=== PATIENT | female | born 1985 | race Caucasian/White ===

== ENCOUNTER 2020-04-15 13:56 | Emergency (ER) | payer SELFPAY ==
[2020-04-15 15:10] LABS: Urine Blood NEGATIVE (NEG); Urine Glucose NEGATIVE (NEG); Urine Protein NEGATIVE (NEG); Urine Specific Gravity 1.015 (1.005-1.030)
[2020-04-15 16:42] LABS: Absolute Lymphocytes (CBC) 2.4 K/uL (0.7-4.9); Hematocrit 34.8 % (36.0-45.0); Lymphocytes % 31.1 % (15.3-44.8); MPV 8.5 fL (7.6-11.3); RBC Red Blood Cell Count 3.83 M/uL (3.86-4.86)
[2020-04-15] MEDS ORDERED: MORPHINE 4 MG/ML SYR ONE (16:43)
[2020-04-15] MEDS ORDERED: ONDANSETRON 4 MG/2 ML VIAL ONE (16:43)
[2020-04-15 16:50] LABS: BUN Blood Urea Nitrogen 11 mg/dL (7-18); Bicarbonate 27 mmol/L (21-32); Glucose Level 85 mg/dL (74-106); Potassium 3.8 mmol/L (3.5-5.1); Sodium Level 138 mmol/L (136-145)
--- NOTE | 2020-04-15 18:13 | RAD REPORT ---
EXAM DESCRIPTION: CT - Abdomen Pelvis W Contrast - 04/15/2020 5:30 pm CLINICAL HISTORY: ABD PAIN COMPARISON: Transvaginal Study Probe dated 04/15/2020 TECHNIQUE: Biphasic, helical CT imaging of the abdomen and pelvis was performed following 100 ml non -ionic IV contrast. No oral contrast administered. All CT scans are performed using dose optimization technique as appropriate and may include automated exposure control or mA/KV adjustment according to patient size. FINDINGS: No suspicious findings in the lung bases. The liver, spleen, and pancreas show no suspicious findings. Gallbladder and biliary tree are also wi thout suspicious finding. Symmetric renal function is seen with no hydronephrosis or suspicious renal mass. No pyelonephritis o r acute parenchymal process. No bladder abnormalities. No adrenal abnormalities. Uterus is not identified and absent by history. Right ovary is not identified also reported to be trisha gically absent. In the left adnexum there are 2 adjacent cystic masses approximately 2.7 and 3.7 cm i n maximum dimension. These have a very similar appearance to the on opacified fluid-filled small michael l. These of the correlate to the earlier ultrasound finding. No gastric dilatation or wall thickening. Multiple fluid-filled nondilated distal small bowel loops a re present. No appendicitis findings. There is a large stool volume present filling and distending th e right-side of the colon and filling the left side of the colon. No colon wall thickening or mass. No free air or pneumatosis. There is no free fluid associated with the left adnexal cyst nor elsewhe re in the peritoneal or retroperitoneal spaces. No hernia, mass or bulky lymphadenopathy. No acute bone findings. Patient has L5 pars interarticularis defects with a minimal degree of anterio r subluxation. IMPRESSION: Contrast enhanced CT abdomen and pelvis showing no free air or other surgically emergent finding. Two cystic masses in the left adnexa are very similar in appearance to the isodense fluid-filled smal l bowel loops. These are believed to be ovarian or paraovarian cysts and correlates to the ultrasound finding. No gross evidence for cyst rupture. These could be a source for left adnexal pain. Patient has a constipation pattern with a large amount of stool filling and/or distending the colon. Distal fluid-filled small bowel loops could indicate associated enteritis.
--- NOTE | 2020-04-15 18:15 | RAD REPORT ---
EXAM DESCRIPTION: US - Transvaginal Study Probe - 04/15/2020 4:59 pm CLINICAL HISTORY: r/o left torsion, left-sided pelvic pain COMPARISON: No comparisons TECHNIQUE: Endovaginal sonography was performed. FINDINGS: Uterus is absent. Right ovary was not identifiable, probably obscured by bowel. No right a dnexal mass identifiable. Left ovary is identifiable. Normal blood flow seen in the ovarian stroma. Patient has 2 complex cysts of the left ovary at least 3.1 and 2.5 cm in maximum dimension. These are both most likely hemorrhag ic cysts. No solid mass component or thickened septation. In the adjacent soft tissues no suspicious mass. IMPRESSION: Two hemorrhagic cysts of the left ovary 3.1 cm and 2.5 cm in size. No suspicion for ovarian torsion. Blood flow is demonstrated in the left ovarian stroma.
--- NOTE | 2020-04-15 18:20 | ER ---
Nurse's Notes [facility] Name: Sania Velarde Age: 34 yrs Sex: Female : 1985 Arrival Date: 04/15/2020 Time: 13:59 Bed 18 Private MD: Diagnosis: Other ovarian cysts;Constipation Presentation: 04/15 14:02 Chief complaint: Patient states: my lower LEFT side it has been hurting for 2 days tw2 getting worse, i had a partial hysterectomy in 2004, 2008 my right ovary removed due torsion. Coronavirus screen: At this time, the client does not indicate any symptoms associated with coronavirus-19. The client reports previous COVID testing was negative. Date of collection: April 11, 2020. Ebola Screen: Patient denies travel to an Ebola-affected area in the 21 days before illness onset. Initial Sepsis Screen: Does the patient meet any 2 criteria? No. Patient's initial sepsis screen is negative. Does the patient have a suspected source of infection? No. Patient's initial sepsis screen is negative. Risk Assessment: Do you want to hurt yourself or someone else? Patient reports no desire to harm self or others. Onset of symptoms was April 15, 2020. 14:02 Method Of Arrival: Ambulatory tw2 14:02 Acuity: GIRISH 3 tw2 Triage Assessment: 14:05 General: Appears in no apparent distress. uncomfortable, Behavior is calm, cooperative, tw2 appropriate for age. Pain: Complains of pain in left lower quadrant. 14:06 : Reports vaginal discharge that is yellow, no odor. 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 - Social history:: Smoking status: Patient reports the use of cigarette tobacco products, smokes one-half pack cigarettes per day. Screenin:53 Abuse screen: Denies threats or abuse. Nutritional screening: No deficits noted. vg1 Tuberculosis screening: No symptoms or risk factors identified. Fall Risk No fall in past 12 months (0 pts). No secondary diagnosis (0 pts). Ambulatory Aid- None/Bed Rest/Nurse Assist (0 pts). Gait- Normal/Bed Rest/Wheelchair (0 pts) Mental Status- Oriented to own ability (0 pts). Total Bailey Fall Scale indicates No Risk (0-24 pts). Assessment: 15:45 General: Appears in no apparent distress. uncomfortable, Behavior is cooperative, vg1 crying. Pain: Complains of pain in left lower quadrant Pain currently is 8 out of 10 on a pain scale. Pain began yesterday. Neuro: Level of Consciousness is awake, alert, obeys commands, Oriented to person, place, time, situation. Cardiovascular: Patient's skin is warm and dry. Respiratory: Airway is patent Respiratory effort is even, unlabored, Respiratory pattern is regular, symmetrical. GI: Patient currently denies diarrhea, nausea, vomiting. GI: Abd is soft X 4 quads Abdomen is tender to palpation in left lower quadrant Guarding noted. : No signs and/or symptoms were reported regarding the genitourinary system. EENT: No signs and/or symptoms were reported regarding the EENT system. Derm: Skin is intact, is healthy with good turgor. Musculoskeletal: Circulation, motion, and sensation intact. 15:45 GI: Reports normal bowel habits. vg1 17:19 Reassessment: Patient appears in no apparent distress at this time. Patient and/or vg1 family updated on plan of care and expected duration. Pain level reassessed. Patient is alert, oriented x 3, equal unlabored respirations, skin warm/dry/pink. Rated pain 5/10. Patient states feeling better. 18:13 Reassessment: Patient stated that the pain is coming back. Rated pain as 7/10. Notified vg1 provider. Vital Signs: 14:02 BP 135 / 78; Pulse 82; Resp 17; Temp 98.5(TE); Pulse Ox 100% on R/A; Weight 77.11 kg tw2 (R); Height 5 ft. 4 in. (162.56 cm); Pain 7/10; 15:45 BP 109 / 65; Pulse 88; Resp 20; Pulse Ox 98% on R/A; vg1 16:30 BP 116 / 60; Pulse 66; Resp 16; Pulse Ox 98% on R/A; vg1 17:00 BP 107 / 61; Pulse 60; Resp 14; Pulse Ox 98% on R/A; vg1 18:00 BP 116 / 59; Pulse 70; Resp 16; Pulse Ox 99% on R/A; vg1 14:02 Body Mass Index 29.18 (77.11 kg, 162.56 cm) tw2 ED Course: 13:59 Patient arrived in ED. ds1 14:04 Triage completed. tw2 14:06 Arm band placed on. tw2 15:38 Hortencia Hoang FNP-C is PHCP. kb 15:38 Jean Loza MD is Attending Physician. kb 15:46 Aledya Samayoa, RN is Primary Nurse. vg1 15:53 Patient has correct armband on for positive identification. Bed in low position. Call vg1 light in reach. 16:10 Missed attempt(s): 20 gauge in right forearm. Bleeding controlled, band aid applied, jp3 catheter tip intact. 16:15 Initial lab(s) drawn, by me, sent to lab. Inserted saline lock: 20 gauge in left jp3 antecubital area, using aseptic technique. Blood collected. 16:15 Patient maintains SpO2 saturation greater than 95% on room air. jp3 16:38 US at bedside. vg1 17:00 US Transvaginal Study (Probe) In Process Unspecified. EDMS 17:30 CT Abd/Pelvis - IV Contrast Only In Process Unspecified. EDMS 18:36 No provider procedures requiring assistance completed. IV discontinued, intact, vg1 bleeding controlled, No redness/swelling at site. Pressure dressing applied. Administered Medications: 16:37 Drug: morphine 4 mg {Note: rass0.} Route: IVP; Site: left antecubital; vg1 17:30 Follow up: Response: No adverse reaction; Pain is decreased vg1 16:37 Drug: Zofran (Ondansetron) 4 mg Route: IVP; Site: left antecubital; vg1 17:30 Follow up: Response: Nausea is decreased vg1 18:35 Drug: TORadol 30 mg Route: IVP; Site: left antecubital; vg1 18:35 Follow up: Response: Medication administered at discharge. vg1 Outcome: 18:19 Discharge ordered by . kb 18:36 Discharged to home ambulatory. vg1 18:36 Condition: stable 18:36 Discharge instructions given to patient, Instructed on discharge instructions, follow up and referral plans. Demonstrated understanding of instructions, follow-up care. 18:36 Patient left the ED. vg1 Signatures: Dispatcher [employer] EDHortencia Gonzales, MANAGER WINTER-C MANAGER WINTER-Soraya Ellison ds1 Laury Byers RN RN tw2 Fabio Boudreaux jp3 Aleyda Samayoa, RN RN vg1
--- NOTE | 2020-04-15 18:20 | EDPHYS ---
Physician Documentation [facility] Name: Sania Velarde Age: 34 yrs Sex: Female : 1985 Arrival Date: 04/15/2020 Time: 13:59 Bed 18 Private MD: ED Physician Jean Loza HPI: 04/15 19:22 This 34 yrs old Female presents to ER via Ambulatory with complaints of L kb Side Pelvic Pain. 19:24 The patient presents with abdominal pain in the left lower quadrant. The patient has kb not experienced similar symptoms in the past. The patient has not recently seen a physician. 19:24 Onset: The symptoms/episode began/occurred 2 day(s) ago. The symptoms do not radiate. kb Associated signs and symptoms: none. The symptoms are described as constant. Modifying factors: The symptoms are alleviated by nothing, the symptoms are aggravated by pressure. Severity of pain: At its worst the pain was moderate in the emergency department the pain is unchanged. 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 - Social history:: Smoking status: Patient reports the use of cigarette tobacco products, smokes one-half pack cigarettes per day. ROS: 19:21 Constitutional: Negative for fever, chills, and weight loss, Cardiovascular: Negative kb for chest pain, palpitations, and edema, Respiratory: Negative for shortness of breath, cough, wheezing, and pleuritic chest pain, Back: Negative for injury and pain, MS/Extremity: Negative for injury and deformity, Skin: Negative for injury, rash, and discoloration, Neuro: Negative for headache, weakness, numbness, tingling, and seizure. 19:21 Abdomen/GI: Positive for abdominal pain, Negative for nausea, vomiting, and diarrhea, constipation, abdominal cramps, abdominal distension, anorexia. Exam: 19:21 Constitutional: This is a well developed, well nourished patient who is awake, alert, kb and in no acute distress. Head/Face: Normocephalic, atraumatic. Chest/axilla: Normal chest wall appearance and motion. Nontender with no deformity. No lesions are appreciated. Cardiovascular: Regular rate and rhythm with a normal S1 and S2. No gallops, murmurs, or rubs. Normal PMI, no JVD. No pulse deficits. Respiratory: Lungs have equal breath sounds bilaterally, clear to auscultation and percussion. No rales, rhonchi or wheezes noted. No increased work of breathing, no retractions or nasal flaring. Back: No spinal tenderness. No costovertebral tenderness. Full range of motion. Skin: Warm, dry with normal turgor. Normal color with no rashes, no lesions, and no evidence of cellulitis. MS/ Extremity: Pulses equal, no cyanosis. Neurovascular intact. Full, normal range of motion. Neuro: Awake and alert, GCS 15, oriented to person, place, time, and situation. Cranial nerves II-XII grossly intact. Motor strength 5/5 in all extremities. Sensory grossly intact. Cerebellar exam normal. Normal gait. 19:21 Abdomen/GI: Inspection: abdomen appears normal, Bowel sounds: normal, in all quadrants, Palpation: soft, in all quadrants, moderate abdominal tenderness, in the left lower quadrant. Vital Signs: 14:02 BP 135 / 78; Pulse 82; Resp 17; Temp 98.5(TE); Pulse Ox 100% on R/A; Weight 77.11 kg tw2 (R); Height 5 ft. 4 in. (162.56 cm); Pain 7/10; 15:45 BP 109 / 65; Pulse 88; Resp 20; Pulse Ox 98% on R/A; vg1 16:30 BP 116 / 60; Pulse 66; Resp 16; Pulse Ox 98% on R/A; vg1 17:00 BP 107 / 61; Pulse 60; Resp 14; Pulse Ox 98% on R/A; vg1 18:00 BP 116 / 59; Pulse 70; Resp 16; Pulse Ox 99% on R/A; vg1 14:02 Body Mass Index 29.18 (77.11 kg, 162.56 cm) tw2 MDM: 15:38 Patient medically screened. kb 19:20 Data reviewed: vital signs, nurses notes. Data interpreted: Pulse oximetry: on room air kb is 99 %. Interpretation: normal. Counseling: I had a detailed discussion with the patient and/or guardian regarding: the historical points, exam findings, and any diagnostic results supporting the discharge/admit diagnosis, lab results, radiology results, the need for outpatient follow up, a family practitioner, to return to the emergency department if symptoms worsen or persist or if there are any questions or concerns that arise at home. 04/15 14:31 Order name: Urine Dipstick--Ancillary (enter results); Complete Time: 15:38 bd 04/15 14:31 Order name: Urine --Ancillary (enter results); Complete Time: 15:38 bd 04/15 16:00 Order name: Basic Metabolic Panel kb 04/15 16:00 Order name: CBC with Diff kb 04/15 16:01 Order name: Basic Metabolic Panel; Complete Time: 16:50 EDMS 04/15 16:01 Order name: CBC with Automated Diff; Complete Time: 17:10 EDMS 04/15 16:00 Order name: IV Saline Lock; Complete Time: 16:25 kb 04/15 16:00 Order name: Labs collected and sent; Complete Time: 16:38 kb 04/15 16:00 Order name: US Transvaginal Study (Probe); Complete Time: 18:17 kb 04/15 16:00 Order name: CT Abd/Pelvis - IV Contrast Only; Complete Time: 18:16 kb 04/15 16:01 Order name: IV Start; Complete Time: 16:23 kb Administered Medications: 16:37 Drug: morphine 4 mg {Note: rass0.} Route: IVP; Site: left antecubital; vg1 17:30 Follow up: Response: No adverse reaction; Pain is decreased vg1 16:37 Drug: Zofran (Ondansetron) 4 mg Route: IVP; Site: left antecubital; vg1 17:30 Follow up: Response: Nausea is decreased vg1 18:35 Drug: TORadol 30 mg Route: IVP; Site: left antecubital; vg1 18:35 Follow up: Response: Medication administered at discharge. vg1 Disposition: 04/15/20 18:19 Discharged to Home. Impression: Other ovarian cysts, Constipation. - Condition is Stable. - Discharge Instructions: Constipation, Adult, [id number], Ovarian Cyst, [id number]. - Medication Reconciliation Form, Thank You Letter, Antibiotic Education, Prescription Opioid Use form. - Follow up: Emergency Department; When: As needed; Reason: Worsening of condition. Follow up: Private Physician; When: 2 - 3 days; Reason: Recheck today's complaints, Continuance of care, Re-evaluation by your physician. Addendum: 04/17/2020 19:09 Co-signature as Attending Physician, Jean Loza MD. r n Signatures: Dispatcher [employer] EDMD Hortencia Hoang, ACUTE DIALYSIS REGISTERED NURSE-C ACUTE DIALYSIS REGISTERED NURSE-Ckb Jean Loza MD MD rn Laury Byers RN RN tw2 Aleyda Samayoa RN RN vg1 Corrections: (The following items were deleted from the chart) 04/15 18:36 18:19 04/15/2020 18:19 Discharged to Home. Impression: Other ovarian cysts; vg1 Constipation. Condition is Stable. Forms are Medication Reconciliation Form, Thank You Letter, Antibiotic Education, Prescription Opioid Use. Follow up: Emergency Department; When: As needed; Reason: Worsening of condition. Follow up: Private Physician; When: 2 - 3 days; Reason: Recheck today's complaints, Continuance of care, Re-evaluation by your physician. kb
[2020-04-15 18:43] VITALS: TEMP 98.5
[2020-04-15] MEDS ORDERED: KETOROLAC 30 MG/ML INJ ONE (18:45)
[2020-04-15 18:47] VITALS: BP 116/59; O2SAT 99
== END 2020-04-15 18:36 | disposition home or self-care (01) ==
LOC: ER 13:56
DX: N83.292 Other ovarian cyst, left side (principal); K59.00 Constipation, unspecified; F17.210 Nicotine dependence, cigarettes, uncomplicated; F31.9 Bipolar disorder, unspecified
CPT/HCPCS: 36415; 74177; 76830; 80048; 81003; 81025; 85025; 96374; 96375; 99284; J2405; Q9967

== ENCOUNTER 2020-04-26 21:00 | Emergency (ER) | payer SELFPAY ==
--- OUTSIDE RECORDS SUMMARY | 2020-04-26 21:03 | XMS REPORT | Clinical Summary ---
:1985 Author Organization [facility] Address [address] [place] [id number] Care Team Providers Name Role Phone Asked, Pcp Primary Care Provider Unavailable Allergies Active Allergy Reactions Severity Noted Date Comments Ibuprofen Rash Low 04/18/2017 Latex Hives 04/18/2017 Medications Medication Sig Dispensed Refills Start Date End Date Status gabapentin (NEURONTIN) Take 600 mg by 0 Active 600 mg tablet mouth 2 (two) times a day. OXcarbazepine Take 600 mg by 0 A ctive (TRILEPTAL) 600 MG mouth 2 (two) tablet times a day. citalopram (CeleXA) 20 Take 20 mg by 0 Active MG tablet mouth daily. Active Problems Not on file Surgical History Surgery Date Site/Laterality Comments HYSTERECTOMY OOPHORECTOMY Right FOREARM SURGERY Left Medical History Medical History Date Comments Bipolar 1 disorder (HCC) PTSD (post-traumatic stress disorder) Anxiety Social History Tobacco Use Types Packs/Day Years Used Date Current Every Day Smoker Cigarettes 0.5 Smokeless Tobacco: Never Used Alcohol Use Drinks/Week oz/Week Comments No Sex Assigned at Date Recorded Not on file Last Filed Vital Signs Not on file Plan of Treatment Health Maintenance Due Date Last Done Comments COVID-19 VACCINE (1 of 2) 2000 HEPATITIS C SCREENING 2002 CERVICAL CANCER SCREENING 2005 INFLUENZA VACCINE 10/21/2019 Results Not on fileafter 04/26/2019 Advance Directives For more information, please contact: [phone] Type Date Recorded 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
[2020-04-26] MEDS ORDERED: ACETAMINOPHEN 500 MG TAB ONE (21:57)
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
[2020-04-27 00:32] VITALS: BP 95/56; TEMP 98.6; O2SAT 99
--- NOTE | 2020-04-27 16:55 | RAD REPORT ---
EXAM DESCRIPTION: CT - Head Brain Wo Cont - 04/27/2020 6:45 am CLINICAL HISTORY: 34 years Female HEADACHE TECHNIQUE: Contiguous axial CT images obtained through the brain without IV contrast. Coronal and sa gittal reformats also provided. This CT exam was performed according to our departmental dose-optimization program, which includes on e or more of the following dose reduction techniques: automated exposure control, adjustment of the m A and/or kV according to patient size, and/or use of iterative reconstruction technique. COMPARISON: No prior exams provided for comparison. FINDINGS: There is no intracranial hemorrhage, extra-axial collection, or acute transcortical infarc tion. The ventricles are normal in size and contour without mass-effect or midline shift. Osseous structures are normal. The paranasal sinuses and mastoid air cells are clear. IMPRESSION: No acute intracranial abnormalities. Electronically signed by: Lakisha Staley MD 04/26/2020 10:25 PM HAND UPPER AND BOTTOM LACER Due to temporary technical issues with the PACS/Fluency reporting system, reports are being signed by the in house radiologists without review as a courtesy to insure prompt reporting. The interpreting radiologist is fully responsible for the content of the report.
== END 2020-04-26 23:41 | disposition home or self-care (01) ==
LOC: ER 21:00
DX: F07.81 Postconcussional syndrome (principal); F17.210 Nicotine dependence, cigarettes, uncomplicated
CPT/HCPCS: 70450; 99284

== ENCOUNTER 2020-05-23 12:47 | Emergency (ER) | payer SELFPAY ==
[2020-05-23 13:40] LABS: Absolute Lymphocytes (CBC) 1.9 K/uL (0.7-4.9); Basophils % 1.1 % (0-1.3); Hematocrit 36.2 % (36.0-45.0); MPV 8.3 fL (7.6-11.3); RBC Red Blood Cell Count 3.96 M/uL (3.86-4.86)
[2020-05-23 14:00] LABS: ALT/SGPT 47 U/L (12-78); AST/SGOT 26 U/L (15-37); Albumin 4.3 g/dL (3.4-5.0); Alkaline Phosphatase 63 U/L (45-117); BUN Blood Urea Nitrogen 9 mg/dL (7-18); Bicarbonate 25 mmol/L (21-32); Bilirubin Direct < 0.1 mg/dL (0-0.2); Bilirubin Total 0.3 mg/dL (0.2-1.0); Glucose Level 91 mg/dL (74-106); Lipase 219 U/L (73-393); Potassium 4.1 mmol/L (3.5-5.1); Protein, Total 8.1 g/dL (6.4-8.2); Sodium Level 140 mmol/L (136-145)
[2020-05-23] MEDS ORDERED: NA CHLORIDE 0.9% 1,000 ML ONE (15:08)
[2020-05-23] MEDS ORDERED: ONDANSETRON 4 MG/2 ML VIAL ONE (15:08)
[2020-05-23] MEDS ORDERED: MORPHINE 4 MG/ML SYR ONE (15:08)
[2020-05-23 15:12] LABS: Urine Blood NEGATIVE (NEG); Urine Glucose NEGATIVE (NEG); Urine Protein NEGATIVE (NEG); Urine pH 6.5 (5.0-7.0)
--- NOTE | 2020-05-23 15:27 | RAD REPORT ---
EXAM DESCRIPTION: CTAbdomen Pelvis W Contrast - 05/23/2020 3:08 pm CLINICAL HISTORY: Abdominal pain. ABD PAIN COMPARISON: Abdomen Pelvis W Contrast dated 04/15/2020 TECHNIQUE: Biphasic CT imaging of the abdomen and pelvis was performed with 100 ml non-ionic IV cont rast. All CT scans are performed using dose optimization technique as appropriate and may include automated exposure control or mA/KV adjustment according to patient size. FINDINGS: The lung bases are clear. The liver contains a 9 mm cyst. The spleen, pancreas, adrenal glands and kidneys are within normal li mits. A tiny 1 mm stone may be present at the right UVJ. No bowel obstruction, free air, free fluid or abscess. Significant stool is present throughout the co rob. The appendix is normal. No evidence of significant lymphadenopathy. No suspicious bony findings. IMPRESSION: Equivocal findings of a tiny punctate 1 mm stone at the right UVJ without significant hy dronephrosis. Significant stool retained throughout the colon.
--- NOTE | 2020-05-23 15:34 | ER ---
Nurse's Notes [facility] Name: Sania Velarde Age: 34 yrs Sex: Female : 1985 Arrival Date: 05/23/2020 Time: 12:55 Bed 27 Private MD: Diagnosis: Ureterolithiasis Right UVJ;Unspecified renal colic Presentation: 05/23 12:58 Coronavirus screen: Client denies travel out of the [place] in the last 14 days. At this ll1 time, the client does not indicate any symptoms associated with coronavirus-19. Ebola Screen: Patient denies travel to an Ebola-affected area in the 21 days before illness onset. Initial Sepsis Screen: Does the patient meet any 2 criteria? HR > 90 bpm. No. Patient's initial sepsis screen is negative. Does the patient have a suspected source of infection? Yes: Acute abdominal pain. Risk Assessment: Do you want to hurt yourself or someone else? Patient reports no desire to harm self or others. Onset of symptoms was May 22, 2020. 12:58 Method Of Arrival: Ambulatory ll1 12:58 Acuity: GIRISH 3 ll1 13:02 Chief complaint: Patient states: R sided abd pain for 1 week. N/V since last night. No ll1 known fever or dysuria. Historical: - PMHx: 12:58 Bipolar disorder; ll1 - PSHx: 12:58 partial hysterectomy; right ovary removed d/t torsion; ll1 - Immunization history:: Flu vaccine is not up to date. - Social history:: Smoking status: Patient reports the use of cigarette tobacco products, smokes one-half pack cigarettes per day. Screenin:03 Abuse screen: Denies threats or abuse. Nutritional screening: No deficits noted. ll1 Tuberculosis screening: No symptoms or risk factors identified. 13:05 Fall Risk No fall in past 12 months (0 pts). No secondary diagnosis (0 pts). IV access vg1 (20 points). Ambulatory Aid- None/Bed Rest/Nurse Assist (0 pts). Gait- Normal/Bed Rest/Wheelchair (0 pts) Mental Status- Oriented to own ability (0 pts). Total Bailey Fall Scale indicates No Risk (0-24 pts). Assessment: 13:15 General: Appears in no apparent distress. uncomfortable, Behavior is calm, cooperative. vg1 Pain: Complains of pain in Right side of back that radiates to right side of ABD and down to groin Pain currently is 9 out of 10 on a pain scale. Neuro: Level of Consciousness is awake, alert, obeys commands, Oriented to person, place, time, situation. Cardiovascular: Patient's skin is warm and dry. Respiratory: Airway is patent Respiratory effort is even, unlabored. GI: Bowel sounds present X 4 quads. Abd is soft X 4 quads Abdomen is tender to palpation in right upper quadrant and right lower quadrant. : Denies burning with urination, pain. EENT: No signs and/or symptoms were reported regarding the EENT system. Derm: Skin is intact, is healthy with good turgor. Musculoskeletal: Circulation, motion, and sensation intact. 14:57 Reassessment: Patient appears in no apparent distress at this time. No changes from vg1 previously documented assessment. Patient and/or family updated on plan of care and expected duration. Pain level reassessed. Patient is alert, oriented x 3, equal unlabored respirations, skin warm/dry/pink. Vital Signs: 12:58 BP 122 / 76; Pulse 91; Resp 17; Temp 97.8; Pulse Ox 97% ; Weight 79.38 kg; Height 5 ft. ll1 4 in. (162.56 cm); Pain 9/10; 13:28 BP 114 / 65; Pulse 90; Resp 16; Pulse Ox 98% on R/A; vg1 14:00 BP 118 / 74; Pulse 77; Resp 16; Pulse Ox 98% on R/A; vg1 14:55 BP 115 / 69; Pulse 70; Resp 14; Pulse Ox 98% on R/A; vg1 12:58 Body Mass Index 30.04 (79.38 kg, 162.56 cm) ll1 ED Course: 12:55 Patient arrived in ED. ll1 12:58 Arm band placed on Patient placed in an exam room, on a stretcher. ll1 12:59 Triage completed. ll1 13:03 Patient has correct armband on for positive identification. Placed in gown. Bed in low ll1 position. Call light in reach. 13:04 Aubrey Oneal [facility]. jr8 13:04 Saurav Kulkarni MD is Attending Physician. jr8 13:08 Yao, Aleyda, RN is Primary Nurse. vg1 13:22 Initial lab(s) drawn, by me, sent to lab. Inserted saline lock: 20 gauge in left vg1 antecubital area, using aseptic technique. Blood collected. 14:[address] via wheelchair. vg1 15:08 CT Abd/Pelvis - IV Contrast Only In Process Unspecified. EDMS 15:29 Josiah Ford MD is Referral Physician. jr8 16:02 No provider procedures requiring assistance completed. IV discontinued, intact, vg1 bleeding controlled, No redness/swelling at site. Pressure dressing applied. Administered Medications: 14:55 Drug: morphine 4 mg {Note: rass0.} Route: IVP; Site: left antecubital; vg1 16:01 Follow up: Response: Pain is decreased vg1 14:55 Drug: Zofran (Ondansetron) 4 mg Route: IVP; Site: left antecubital; vg1 16:01 Follow up: Response: No adverse reaction vg1 14:55 Drug: NS 0.9% 1000 ml Route: IV; Rate: 1 bolus; Site: left antecubital; vg1 16:01 Follow up: IV Status: Completed infusion vg1 Outcome: 15:32 Discharge ordered by . jr8 16:02 Discharged to home ambulatory. vg1 16:02 Condition: stable 16:02 Discharge instructions given to patient, Instructed on discharge instructions, follow up and referral plans. medication usage, Demonstrated understanding of instructions, follow-up care, medications, Prescriptions given X 3. 16:03 Patient left the ED. vg1 Signatures: Dispatcher [employer] EDAZ Aubrey Oneal PA PA jr8 Aleyda Samayoa, RN RN vg1 Tawnya Gastelum RN RN ll1
--- NOTE | 2020-05-23 15:34 | EDPHYS ---
Physician Documentation [facility] Name: Sania Velarde Age: 34 yrs Sex: Female : 1985 Arrival Date: 05/23/2020 Time: 12:55 Bed 27 Private MD: ED Physician Saruav Kulkarni HPI: 05/23 14:28 This 34 yrs old Female presents to ER via Ambulatory with complaints of jr8 Abdominal Pain. 14:28 The patient presents with abdominal pain in the right upper quadrant, right lower jr8 quadrant. Onset: The symptoms/episode began/occurred 1 week(s) ago. The symptoms radiate to the right flank. Associated signs and symptoms: Pertinent positives: vomiting. The patient has not experienced similar symptoms in the past. Patient reports having abd pain 1 week ago. She notified her PC but was unable to seek evaluation with her. Last night she started to vomit. She denies diarrhea, vaginal bleeding or discharge. PMHx: partial hysterectomy, R ovary removal from torsion, but reports she still has appendix. . Historical: - PMHx: 12:58 Bipolar disorder; ll1 - PSHx: 12:58 partial hysterectomy; right ovary removed d/t torsion; ll1 - Immunization history:: Flu vaccine is not up to date. - Social history:: Smoking status: Patient reports the use of cigarette tobacco products, smokes one-half pack cigarettes per day. ROS: 14:31 Cardiovascular: Negative for chest pain, palpitations, and edema, Respiratory: Negative jr8 for shortness of breath, cough, wheezing, and pleuritic chest pain, : Negative for injury, bleeding, discharge, and swelling, MS/Extremity: Negative for injury and deformity, Skin: Negative for injury, rash, and discoloration, Neuro: Negative for headache, weakness, numbness, tingling, and seizure. 14:31 Abdomen/GI: Positive for abdominal pain, nausea, vomiting, of the right upper quadrant and right lower quadrant. 14:31 Abdomen/GI: Positive for 14:31 Back: Positive for flank pain, on the right. Exam: 14:31 Chest/axilla: Normal chest wall appearance and motion. Nontender with no deformity. jr8 No lesions are appreciated. Cardiovascular: Regular rate and rhythm with a normal S1 and S2. No gallops, murmurs, or rubs. Normal PMI, no JVD. No pulse deficits. Respiratory: Lungs have equal breath sounds bilaterally, clear to auscultation and percussion. No rales, rhonchi or wheezes noted. No increased work of breathing, no retractions or nasal flaring. MS/ Extremity: Pulses equal, no cyanosis. Neurovascular intact. Full, normal range of motion. Neuro: Awake and alert, GCS 15, oriented to person, place, time, and situation. Cranial nerves II-XII grossly intact. Motor strength 5/5 in all extremities. Sensory grossly intact. Cerebellar exam normal. Normal gait. 14:31 Abdomen/GI: Inspection: distension, that is mild, in the right upper quadrant and right lower quadrant, Bowel sounds: Palpation: severe abdominal tenderness, in the right upper quadrant and right lower quadrant, mass, that is hard, of the right upper quadrant and right lower quadrant, Indicators: Mai's sign is positive. 14:31 Back: pain, that is moderate, of the right mid back and right low back, CVA tenderness, that is moderate, is noted on the right. 14:49 Abdomen/GI: Palpation: jr8 Vital Signs: 12:58 BP 122 / 76; Pulse 91; Resp 17; Temp 97.8; Pulse Ox 97% ; Weight 79.38 kg; Height 5 ft. ll1 4 in. (162.56 cm); Pain 9/10; 13:28 BP 114 / 65; Pulse 90; Resp 16; Pulse Ox 98% on R/A; vg1 14:00 BP 118 / 74; Pulse 77; Resp 16; Pulse Ox 98% on R/A; vg1 14:55 BP 115 / 69; Pulse 70; Resp 14; Pulse Ox 98% on R/A; vg1 12:58 Body Mass Index 30.04 (79.38 kg, 162.56 cm) ll1 MDM: 13:04 Patient medically screened. jr8 14:33 Data reviewed: vital signs, nurses notes, lab test result(s), radiologic studies, CT jr8 scan. Data interpreted: child monitor: rate is 90 beats/min, rhythm is normal sinus rhythm, Pulse oximetry: on room air is 98 %. Interpretation: normal. 14:50 ED course: Secondary evaluation showed R side abd harness was no longer present. Abd jr8 soft, guarded, and tender to touch on R side. . 15:28 Counseling: I had a detailed discussion with the patient and/or guardian regarding: the jr8 historical points, exam findings, and any diagnostic results supporting the discharge/admit diagnosis, lab results, radiology results, the need for outpatient follow up, a urologist, to return to the emergency department if symptoms worsen or persist or if there are any questions or concerns that arise at home. Response to treatment: the patient's symptoms have markedly improved after treatment. Special discussion: Based on the patient's Hx, exam, and Dx evaluation, there is no indication for emergent surgery or inpatient Tx. It is understood by the patient/guardian that if the Sx's persist or worsen they need to return immediately for re-evaluation. 05/23 13:04 Order name: Basic Metabolic Panel; Complete Time: 14:13 8 05/23 13:04 Order name: CBC with Diff; Complete Time: 13:58 jr8 05/23 13:04 Order name: Hepatic Function; Complete Time: 14:13 jr8 05/23 13:04 Order name: Lipase; Complete Time: 14:13 jr8 05/23 13:38 Order name: Urine Dipstick--Ancillary (enter results) em1 05/23 13:38 Order name: Urine --Ancillary (enter results); Complete Time: 15:18 em1 05/23 13:04 Order name: IV Saline Lock; Complete Time: 13:25 jr8 05/23 13:04 Order name: Labs collected and sent; Complete Time: 13:25 jr8 05/23 13:04 Order name: Urine Test (obtain specimen); Complete Time: 13:33 jr8 05/23 13:04 Order name: Urine Dipstick-Ancillary (obtain specimen); Complete Time: 13:33 jr8 05/23 14:13 Order name: CT Abd/Pelvis - IV Contrast Only; Complete Time: 15:28 jr8 Administered Medications: 14:55 Drug: morphine 4 mg {Note: rass0.} Route: IVP; Site: left antecubital; vg1 16:01 Follow up: Response: Pain is decreased vg1 14:55 Drug: Zofran (Ondansetron) 4 mg Route: IVP; Site: left antecubital; vg1 16:01 Follow up: Response: No adverse reaction vg1 14:55 Drug: NS 0.9% 1000 ml Route: IV; Rate: 1 bolus; Site: left antecubital; vg1 16:01 Follow up: IV Status: Completed infusion vg1 Disposition: 22:17 Co-signature as Attending Physician, Saurav Kulkarni MD I agree with the assessment and kdr plan of care. Disposition: 05/23/20 15:32 Discharged to Home. Impression: Ureterolithiasis Right UVJ, Unspecified renal colic. - Condition is Stable. - Discharge Instructions: Kidney Stones, Renal Colic. - Prescriptions for Ibuprofen 800 mg Oral Tablet - take 1 tablet by ORAL route every 12 hours As needed take with food; 20 tablet. Tylenol- Codeine #3 300-30 mg Oral Tablet - take 2 tablets by ORAL route every 4-6 hours As needed; 12 tablet. Zofran 4 mg Oral Tablet - take 1 tablet by ORAL route every 12 hours As needed; 20 tablet. - Medication Reconciliation Form, Thank You Letter, Antibiotic Education, Prescription Opioid Use form. - Follow up: Josiah Ford MD; When: 1 week; Reason: Recheck today's complaints, Continuance of care, Re-evaluation by your physician. - Problem is new. - Symptoms have improved. Signatures: Dispatcher [employer] EDMS Saurav Kulkarni MD MD [facility] Aubrey Oneal PA PA jr8 Aleyda Samayoa RN RN vg1 Tawnya Gastelum RN RN ll1 Corrections: (The following items were deleted from the chart) 15:33 15:32 05/23/2020 15:32 Discharged to Home. Impression: Ureterolithiasis Right UVJ. jr8 Condition is Stable. Forms are Medication Reconciliation Form, Thank You Letter, Antibiotic Education, Prescription Opioid Use. Follow up: Josiah Ford; When: 1 week; Reason: Recheck today's complaints, Continuance of care, Re-evaluation by your physician. Problem is new. Symptoms have improved. jr8 16:03 15:33 05/23/2020 15:32 Discharged to Home. Impression: Ureterolithiasis Right UVJ; vg1 Unspecified renal colic. Condition is Stable. Forms are Medication Reconciliation Form, Thank You Letter, Antibiotic Education, Prescription Opioid Use. Follow up: Josiah Ford; When: 1 week; Reason: Recheck today's complaints, Continuance of care, Re-evaluation by your physician. Problem is new. Symptoms have improved. jr8
[2020-05-23 16:10] VITALS: TEMP 97.8
[2020-05-23 16:11] VITALS: O2SAT 98
[2020-05-23 16:14] VITALS: BP 115/69
== END 2020-05-23 16:03 | disposition home or self-care (01) ==
LOC: ER 12:47
DX: N20.1 Calculus of ureter (principal); F31.9 Bipolar disorder, unspecified; F17.210 Nicotine dependence, cigarettes, uncomplicated
CPT/HCPCS: 36415; 74177; 80048; 80076; 81003; 81025; 83690; 85025; 96361; 96374; 96375; 99284; J2405; J7030; Q9967

== ENCOUNTER 2020-06-03 19:20 | Emergency (ER) | payer SELFPAY ==
[2020-06-04 00:54] LABS: Absolute Lymphocytes (CBC) 2.5 K/uL (0.7-4.9); Hematocrit 37.5 % (36.0-45.0); RBC Red Blood Cell Count 4.08 M/uL (3.86-4.86)
[2020-06-04] MEDS ORDERED: ONDANSETRON 4 MG/2 ML VIAL ONE (00:56)
[2020-06-04] MEDS ORDERED: KETOROLAC 30 MG/ML INJ ONE (00:56)
[2020-06-04] MEDS ORDERED: NA CHLORIDE 0.9% 1,000 ML ONE (00:57)
[2020-06-04 01:10] LABS: ALT/SGPT 40 U/L (12-78); AST/SGOT 23 U/L (15-37); Albumin 4.4 g/dL (3.4-5.0); Alkaline Phosphatase 62 U/L (45-117); BUN Blood Urea Nitrogen 13 mg/dL (7-18); Bicarbonate 26 mmol/L (21-32); Bilirubin Direct < 0.1 mg/dL (0-0.2); Bilirubin Total 0.2 mg/dL (0.2-1.0); Glucose Level 85 mg/dL (74-106); Lipase 307 U/L (73-393); Potassium 3.9 mmol/L (3.5-5.1); Protein, Total 8.5 g/dL (6.4-8.2); Sodium Level 139 mmol/L (136-145)
--- NOTE | 2020-06-04 03:49 | ER ---
Nurse's Notes [facility] Name: Sania Velarde Age: 34 yrs Sex: Female : 1985 Arrival Date: 06/03/2020 Time: 19:24 Bed 8 Private MD: Diagnosis: Low back pain;Constipation Presentation: 06/03 20:09 Chief complaint: Patient states: 2 weeks ago, diagnosed with kidney stone on the L ca1 side. Over the weekend, had low grade fever, been having severe pain on the L groin area and lower abdominal area. Went to my doctor today and she told me to come to the ER to be reevaluated. Coronavirus screen: Client denies travel out of the [place] in the last 14 days. At this time, the client does not indicate any symptoms associated with coronavirus-19. Ebola Screen: Patient negative for fever greater than or equal to 101.5 degrees Fahrenheit, and additional compatible Ebola Virus Disease symptoms Patient denies exposure to infectious person. Patient denies travel to an Ebola-affected area in the 21 days before illness onset. No symptoms or risks identified at this time. Initial Sepsis Screen: Does the patient meet any 2 criteria? No. Patient's initial sepsis screen is negative. Does the patient have a suspected source of infection? No. Patient's initial sepsis screen is negative. Risk Assessment: Do you want to hurt yourself or someone else? Patient reports no desire to harm self or others. Onset of symptoms was June 03, 2020. 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 - Social history:: Smoking status: Patient reports the use of cigarette tobacco products, smokes one-half pack cigarettes per day. Screenin/16 00:28 Abuse screen: Denies threats or abuse. Nutritional screening: No deficits noted. ea Tuberculosis screening: No symptoms or risk factors identified. Fall Risk None identified. Assessment: 00:47 General: Appears uncomfortable, Behavior is calm, cooperative, appropriate for age. ea Pain: Complains of pain in posterior aspect of right lateral abdomen, anterior aspect of right lateral abdomen, right lower quadrant and left lower quadrant. Neuro: Level of Consciousness is awake, alert, obeys commands, Oriented to person, place, time, situation. Respiratory: Airway is patent Respiratory effort is even, unlabored, Respiratory pattern is regular, symmetrical. GI: Abdomen is non-distended. Derm: Skin is pink, warm \T\ dry. 02:06 Reassessment: Patient and/or family updated on plan of care and expected duration. Pain ea level reassessed. Patient is alert, oriented x 3, equal unlabored respirations, skin warm/dry/pink. 03:57 Reassessment: Patient and/or family updated on plan of care and expected duration. Pain ea level reassessed. Patient is alert, oriented x 3, equal unlabored respirations, skin warm/dry/pink. Discharge instruction given to patient verbalized the understanding of instruction. Pt left ED ambulatory tolerating well. Vital Signs: 06/03 20:09 BP 145 / 95; Pulse 72; Resp 16 S; Temp 97.8(TE); Pulse Ox 100% on R/A; Weight 81.19 kg ca1 (R); Height 5 ft. 4 in. (162.56 cm) (R); Pain 9/10; 06/04 00:48 BP 126 / 74; Pulse 70; Resp 17; Pulse Ox 99% on R/A; ea 02:06 BP 98 / 58; Pulse 68; Resp 18; Pulse Ox 99% ; ea 03:53 BP 118 / 62; Pulse 60; Resp 18; Pulse Ox 100% ; ea 06/03 20:09 Body Mass Index 30.72 (81.19 kg, 162.56 cm) ca1 ED Course: 06/03 19:24 Patient arrived in ED. am4 19:40 Fazal Bland MD is Attending Physician. tw4 20:12 Triage completed. ca1 20:13 Arm band placed on right wrist. ca1 06/04 00:28 Sonam Das, RN is Primary Nurse. ea 00:28 Patient has correct armband on for positive identification. Bed in low position. Call ea light in reach. Side rails up X 1. 00:47 Inserted saline lock: 20 gauge in right antecubital area, using aseptic technique. ea 02:57 CT Stone Protocol In Process Unspecified. EDMS 03:53 No provider procedures requiring assistance completed. ea 03:58 IV discontinued, intact, bleeding controlled, No redness/swelling at site. Pressure ea dressing applied. Administered Medications: 00:45 CANCELLED (Duplicate Order): Zofran (Ondansetron) 4 mg IVP once; over 2 minutes ea 00:46 Drug: TORadol - Ketorolac 15 mg Route: IVP; Site: right antecubital; ea 01:30 Follow up: Response: No adverse reaction ea 00:46 Drug: Zofran (Ondansetron) 4 mg Route: IVP; Site: right antecubital; ea 01:30 Follow up: Response: No adverse reaction ea 00:46 CANCELLED (Duplicate Order): TORadol - Ketorolac 15 mg IVP once ea 00:46 Drug: NS 0.9% 1000 ml Route: IV; Rate: 1 bolus; Site: right antecubital; ea 02:00 Follow up: Response: No adverse reaction; IV Status: Completed infusion; IV Intake: ea 1000ml Intake: 02:00 IV: 1000ml; Total: 1000ml. ea Outcome: 03:49 Discharge ordered by MD. nye 03:58 Discharged to home ambulatory. ea 03:58 Condition: stable 03:58 Discharge instructions given to patient, Instructed on discharge instructions, follow up and referral plans. medication usage, Demonstrated understanding of instructions, follow-up care, medications, Prescriptions given X 3. 03:59 Patient left the ED. ea Signatures: Dispatcher [employer] EDMS Sonam Das RN Fazal Smith ea, MD MD tw4 Vane Ortega RN Deandra Johnson formerly [facility]
--- NOTE | 2020-06-04 03:49 | EDPHYS ---
Physician Documentation [facility] Name: Sania Velarde Age: 34 yrs Sex: Female : 1985 Arrival Date: 06/03/2020 Time: 19:24 Bed 8 Private MD: ED Physician Fazal Bland HPI: 06/04 00:52 This 34 yrs old Female presents to ER via Ambulatory with complaints of tw4 Possible Kidney Stone. 00:52 The patient complains of pain in the right mid back. The pain radiates to the right tw4 lower quadrant. Modifying factors: The symptoms are alleviated by nothing. the symptoms are aggravated by nothing. Severity of pain: At its worst the pain was moderate in the emergency department the pain is unchanged. The patient has not experienced similar symptoms in the past. 00:52 Onset: The symptoms/episode began/occurred 2 week(s) ago, and became persistent tw4 yesterday. The patient has been recently seen at the [facility] Emergency Department, a couple of weeks ago. 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 - Social history:: Smoking status: Patient reports the use of cigarette tobacco products, smokes one-half pack cigarettes per day. ROS: 06/04 00:52 Constitutional: Negative for fever, chills, and weight loss, Eyes: Negative for injury, tw4 pain, redness, and discharge, Cardiovascular: Negative for chest pain, palpitations, and edema, Respiratory: Negative for shortness of breath, cough, wheezing, and pleuritic chest pain, Abdomen/GI: Negative for abdominal pain, nausea, vomiting, diarrhea, and constipation, MS/Extremity: Negative for injury and deformity, Skin: Negative for injury, rash, and discoloration, Neuro: Negative for headache, weakness, numbness, tingling, and seizure. Back: Positive for flank pain, on the right. Exam: 00:52 Constitutional: This is a well developed, well nourished patient who is awake, alert, tw4 and in no acute distress. Head/Face: Normocephalic, atraumatic. Chest/axilla: Normal chest wall appearance and motion. Nontender with no deformity. No lesions are appreciated. Cardiovascular: Regular rate and rhythm with a normal S1 and S2. No gallops, murmurs, or rubs. Normal PMI, no JVD. No pulse deficits. Respiratory: Lungs have equal breath sounds bilaterally, clear to auscultation and percussion. No rales, rhonchi or wheezes noted. No increased work of breathing, no retractions or nasal flaring. Abdomen/GI: Soft, non-tender, with normal bowel sounds. No distension or tympany. No guarding or rebound. No evidence of tenderness throughout. 00:52 Back: pain, is absent, ROM is painful, CVA tenderness, that is moderate, is noted on the right. Vital Signs: 06/03 20:09 BP 145 / 95; Pulse 72; Resp 16 S; Temp 97.8(TE); Pulse Ox 100% on R/A; Weight 81.19 kg ca1 (R); Height 5 ft. 4 in. (162.56 cm) (R); Pain 9/10; 16 00:48 BP 126 / 74; Pulse 70; Resp 17; Pulse Ox 99% on R/A; ea 02:06 BP 98 / 58; Pulse 68; Resp 18; Pulse Ox 99% ; ea 03:53 BP 118 / 62; Pulse 60; Resp 18; Pulse Ox 100% ; ea 06/03 20:09 Body Mass Index 30.72 (81.19 kg, 162.56 cm) ca1 MDM: 00:51 Patient medically screened. tw4 03:47 Differential diagnosis: nephrolithiasis, pyelonephritis. Data reviewed: vital signs, tw4 nurses notes. Data interpreted: Pulse oximetry: Interpretation: normal. Counseling: I had a detailed discussion with the patient and/or guardian regarding: the historical points, exam findings, and any diagnostic results supporting the discharge/admit diagnosis, radiology results. Medication response: Toradol markedly relieved the patient's pain. Response to treatment: and as a result, I will discharge patient. Special discussion: I discussed with the patient/guardian in detail that at this point there is no indication for admission to the hospital. It is understood, however, that if the symptoms persist or worsen the patient needs to return immediately for re-evaluation. 06/04 00:25 Order name: Basic Metabolic Panel; Complete Time: 01:44 06/04 01:44 Interpretation: Within normal limits. 06/04 00:25 Order name: CBC with Diff; Complete Time: 01:44 06/04 01:44 Interpretation: Normal except: WBC 7.90. 06/04 00:25 Order name: Hepatic Function; Complete Time: 01:44 06/04 01:44 Interpretation: Normal except: TP 8.5; GLOB 4.1. 06/04 00:25 Order name: Lipase; Complete Time: 01:44 06/04 01:44 Interpretation: Within normal limits: LIP 307. 06/04 00:51 Order name: CT Stone Protocol 06/04 00:25 Order name: IV Saline Lock; Complete Time: 00:46 06/04 00:25 Order name: Labs collected and sent; Complete Time: 00:46 06/04 00:25 Order name: Urine Dipstick-Ancillary (obtain specimen); Complete Time: 03:55 06/04 00:25 Order name: Urine Test (obtain specimen); Complete Time: 03:55 Administered Medications: 00:45 CANCELLED (Duplicate Order): Zofran (Ondansetron) 4 mg IVP once; over 2 minutes ea 00:46 Drug: TORadol - Ketorolac 15 mg Route: IVP; Site: right antecubital; ea 01:30 Follow up: Response: No adverse reaction ea 00:46 Drug: Zofran (Ondansetron) 4 mg Route: IVP; Site: right antecubital; ea 01:30 Follow up: Response: No adverse reaction ea 00:46 CANCELLED (Duplicate Order): TORadol - Ketorolac 15 mg IVP once ea 00:46 Drug: NS 0.9% 1000 ml Route: IV; Rate: 1 bolus; Site: right antecubital; ea 02:00 Follow up: Response: No adverse reaction; IV Status: Completed infusion; IV Intake: ea 1000ml Disposition: 06/04/20 03:49 Discharged to Home. Impression: Low back pain, Constipation. - Condition is Stable. - Discharge Instructions: Back Pain, Adult, Chronic Back Pain, Constipation, Adult, Pain Without a Known Cause. - Prescriptions for Colace 100 mg Oral Tablet - take 1 tablet by ORAL route every 12 hours; 14 tablet. Ibuprofen 800 mg Oral Tablet - take 1 tablet by ORAL route every 8 hours As needed take with food; 30 tablet. Cyclobenzaprine 10 mg Oral Tablet - take 1 tablet by ORAL route every 8 hours As needed; 30 tablet. - Medication Reconciliation Form, Thank You Letter, Antibiotic Education, Prescription Opioid Use form. - Follow up: Private Physician; When: Upon discharge from the Emergency Department; Reason: Recheck today's complaints, Continuance of care, Re-evaluation by your physician. - Problem is new. - Symptoms have improved. Signatures: Dispatcher [employer] EDSonam Cedillo RN Fazal Smith ea, MD MD tw4 Vane Ortega RN KENDRICK ca1 Corrections: (The following items were deleted from the chart) 00:45 00:45 Zofran (Ondansetron) 4 mg IVP once; over 2 minutes ordered. raji alegria 00:46 00:45 TORadol - Ketorolac 15 mg IVP once ordered. ea ea 00:53 00:52 Onset: The symptoms/episode began/occurred today, tw4 tw4 03:59 03:49 06/04/2020 03:49 Discharged to Home. Impression: Low back pain; Constipation. ea Condition is Stable. Forms are Medication Reconciliation Form, Thank You Letter, Antibiotic Education, Prescription Opioid Use. Follow up: Private Physician; When: Upon discharge from the Emergency Department; Reason: Recheck today's complaints, Continuance of care, Re-evaluation by your physician. Problem is new. Symptoms have improved. tw4
[2020-06-04 05:41] VITALS: TEMP 97.8
[2020-06-04 05:46] VITALS: BP 118/62; O2SAT 100
[2020-06-04 06:18] LABS: Urine Blood NEGATIVE (NEG); Urine Glucose NEGATIVE (NEG); Urine Protein NEGATIVE (NEG)
--- NOTE | 2020-06-04 12:25 | RAD REPORT ---
EXAM DESCRIPTION: CT - Stone Protocol - 06/04/2020 6:16 am CLINICAL HISTORY: 34 years, Female, ABD PAIN COMPARISON: 05/23/2020. TECHNIQUE: Multiple transaxial tomograms of the abdomen and pelvis were performed from the lung base s to the symphysis pubis 3 mm slice thickness at 3 mm interval reconstruction, without administration of IV and oral contrast. Multiplanar reformats in the sagittal and coronal plane were generated and reviewed. An individualized dose optimization technique, Automated Exposure Control, was utilized for the perfo rmed procedure. FINDINGS: The lack of IV and oral contrast limits evaluation of solid organs, subtle lesions cannot be excluded. The lung bases demonstrate to be clear. Grossly the unopacified liver, gallbladder, pancreas, spleen and adrenal glands demonstrate to be wit hin normal limits, no significant focal lesions were identified. The kidneys demonstrate grossly unremarkable, no nephrolithiasis and/or hydronephrosis were identifie d. No focal masses were demonstrated. The ureters displays normal appearance with normal caliber, no hydroureter was seen. Grossly the unopacified stomach, small bowel and large bowel demonstrate to be within normal limits. There is no evidence for bowel dilatation and/or free air. The appendix is normal. Fecal residue thro ughout the large bowel could suggest mild fecal stasis. The urinary bladder demonstrate to be within normal limits. Again there is noted the presence of bila teral tiny punctate areas of cortication is within the pelvic floor most likely community health representative of phl eboliths rather than ureteral calculi. The uterus demonstrate to be within normal limits. No adnexal masses are identified. The aorta demonstrate to be within normal limits. There is no retroperitonea l lymphadenopathy. There is no evidence for ascites. The rest of the soft tissue demonstrate to be grossly unremarkable. IMPRESSION: Mild fecal stasis. No nephrolithiasis and/or hydronephrosis. Again there is the presence of bilateral tiny punctate areas of cortication within the pelvic floor m ost likely community health representative of phleboliths rather than ureteral calculi. Electronically signed by: Amish Joe MD 06/04/2020 3:08 AM CDT Due to temporary technical issues with the PACS/Fluency reporting system, reports are being signed by the in house radiologist without review as a courtesy to ensure prompt reporting. The interpreting r adiologist is fully responsible for the content of the report.
== END 2020-06-04 03:59 | disposition home or self-care (01) ==
LOC: ER 19:20
DX: K59.00 Constipation, unspecified (principal); F17.210 Nicotine dependence, cigarettes, uncomplicated
CPT/HCPCS: 36415; 74176; 76377; 80048; 80076; 81003; 81025; 83690; 85025; 96361; 96374; 96375; 99284; J2405; J7030